=== PATIENT | female | born 1995 ===

== ENCOUNTER 2023-08-06 16:07 | Inpatient (IN) | payer OTHER ==
[2023-08-06 16:39] LABS: APPEARANCE,URINE CLEAR; BILIRUBIN,URINE NEGATIVE (NEGATIVE); COLOR,URINE YELLOW; GLUCOSE,URINE NEGATIVE (NEGATIVE); KETONES,URINE NEGATIVE (NEGATIVE); LEUKOCYTE ESTERASE,URINE NEGATIVE (NEGATIVE); NITRITE,URINE NEGATIVE (NEGATIVE); OCCULT BLOOD,URINE NEGATIVE (NEGATIVE); PH,URINE 6.5 (5.0-8.0); PROTEIN,URINE NEGATIVE (NEGATIVE); UROBILINOGEN,URINE 0.2 EU/dL (<2.0)
[2023-08-06 17:24] LABS: HEMATOCRIT 34.5 % (37.0-47.0); HEMOGLOBIN 12.5 g/dL (12.0-16.0); MEAN CORPUSCULAR HEMOGLOBIN 32.3 pg (28.0-32.0); MEAN CORPUSCULAR HGB CONC 36.2 g/dL (32.0-36.0); MEAN CORPUSCULAR VOLUME 89.1 fL (83.0-99.0); MEAN PLATELET VOLUME 10.4 fL (9.4-12.3); PLATELET COUNT,PLT 176 K/uL (150-400); RED BLOOD CELL COUNT 3.87 M/uL (4.10-5.30)
[2023-08-06] MEDS ORDERED: Tranexamic Acid IN NACL,ISO-OS 1,000 MG in Premix Bag 1 BAG IV PRN ×2 (17:42)
[2023-08-06] MEDS ORDERED: Methylergonovine 0.2 MG/1 ML Amp IM PRN (17:42)
[2023-08-06] MEDS ORDERED: Misoprostol 200 MCG Tab PO PRN (17:42)
[2023-08-06] MEDS ORDERED: Lidocaine 1% 50 ML MDV INJECT PRN (17:42)
[2023-08-06] MEDS ORDERED: Nalbuphine 10 MG/0.5 ML Syringe IVPUSH PRN (17:42)
[2023-08-06] MEDS ORDERED: Carboprost Tromethamine 250 MCG/1 mL Vial IM PRN (17:42)
[2023-08-06] MEDS ORDERED: Sodium Chloride 0.9% 10 ML Syringe FLUSH PRN (17:42)
[2023-08-06] MEDS ORDERED: Terbutaline 1 MG/ML SDV SUBCUT PRN (17:42)
[2023-08-06] MEDS ORDERED: Water For Irrigation,Sterile 1,000 ML Container IRR PRN (17:42)
[2023-08-06] MEDS ORDERED: Sodium Chloride 0.9% 20 ML SDV IV PRN (17:42)
[2023-08-06] MEDS ORDERED: Sodium Chloride 0.9% 2.5 ML Syringe FLUSH PRN (17:42)
[2023-08-06] MEDS ORDERED: Oxytocin/0.9 % Sodium Chloride 30 UNIT/500 ML BAG IV SCH ×2 (17:45)
[2023-08-06] MEDS ORDERED: Labetalol 100 MG Tab PO ONE (17:57)
[2023-08-06 17:59] LABS: A/G RATIO 0.7 (0.9-1.6); ALBUMIN 2.8 g/dL (3.4-5.0); BILIRUBIN TOTAL 0.2 mg/dL (0.2-1.0); CREATININE 0.8 mg/dL (0.6-1.0); EST CRCL DRUG DOSING (CG) 108.44 mL/min; POTASSIUM,K 3.4 mmol/L (3.5-5.1); PROTEIN TOTAL,TP 6.6 g/dL (6.4-8.2); URIC ACID 4.5 mg/dL (2.6-7.2)
[2023-08-06] MEDS ORDERED: Ampicillin 2 GM in Sodium Chloride 0.9% 100 ML IV ONE (18:00)
[2023-08-06] MEDS ORDERED: Labetalol 100 MG/20 ML MDV IVPUSH PRN (18:06)
[2023-08-06] MEDS: Lactated Ringers 1,000 ML IV SCH (18:43)
[2023-08-06] MEDS: Misoprostol 25 MCG (1/4 of 100 MCG) Tab VAG PRN ×2 (19:17→23:24)
[2023-08-06] MEDS ORDERED: Phenylephrine HCl 0.5 MG/5 ML AMP IVPUSH PRN (20:08)
[2023-08-06] MEDS ORDERED: ePHEDrine 50 MG/ML SDV IVPUSH PRN ×2 (20:08)
[2023-08-06] MEDS ORDERED: Ropivacaine HCl/PF 400 MG in Premix Bag 1 BAG EPIDUR SCH (20:15)
[2023-08-06] MEDS: Ampicillin 1 GM in Sodium Chloride 0.9% 50 ML IV SCH (21:57)
[2023-08-07] MEDS: Ampicillin 1 GM in Sodium Chloride 0.9% 50 ML IV SCH ×6 (02:00→22:04)
[2023-08-07] MEDS: Misoprostol 25 MCG (1/4 of 100 MCG) Tab VAG PRN ×2 (03:25→07:34)
[2023-08-07] MEDS: Lactated Ringers 1,000 ML IV SCH ×3 (03:34→16:02)
[2023-08-07] MEDS ORDERED: Labetalol 100 MG Tab PO ONE (07:26)
[2023-08-07] MEDS ORDERED: dexmedeTOMIDine HCl 200 MCG/2 ML SDV ONE (15:26)
[2023-08-07] MEDS ORDERED: Bupivacaine 0.25% 10 ML SDV ONE (15:26)
[2023-08-07] MEDS: Ondansetron 4 MG/2 ML SDV IVPUSH PRN ×2 (16:04→22:05)
[2023-08-07] MEDS ORDERED: Famotidine 20 MG/2 ML SDV IVPUSH ONE (18:31)
[2023-08-08] MEDS ORDERED: Tranexamic Acid IN NACL,ISO-OS 1,000 MG in Premix Bag 1 BAG IV PRN ×2 (00:12)
[2023-08-08] MEDS ORDERED: Misoprostol 200 MCG Tab PO PRN (00:12)
[2023-08-08] MEDS ORDERED: Benzocaine/Menthol 20%-0.5% Spray 78 GM Cannister TOP PRN (00:12)
[2023-08-08] MEDS ORDERED: Lanolin 100% Cream 7 GM Tube TOP PRN (00:12)
[2023-08-08] MEDS: Witch Hazel Medicated Pads 40/Jar TOP PRN ×2 (00:32→14:08)
[2023-08-08 00:54] LABS: PH,UMBILICAL ARTERIAL 7.276 (7.18-7.38); PH,UMBILICAL VENOUS 7.468 (7.25-7.45)
[2023-08-08] MEDS ORDERED: Terbutaline 1 MG/ML SDV ONE (05:34)
[2023-08-08] MEDS: Docusate Sodium 100 MG Cap PO PRN ×2 (08:49→20:26)
[2023-08-08] MEDS: Acetaminophen 500 MG Tab PO PRN ×3 (08:49→20:26)
[2023-08-08] MEDS: Ibuprofen 800 MG Tab PO PRN ×2 (11:22→18:15)
[2023-08-09] MEDS: Ibuprofen 800 MG Tab PO PRN (04:20)
[2023-08-09 06:13] LABS: HEMATOCRIT 31.9 % (37.0-47.0); HEMOGLOBIN 11.1 g/dL (12.0-16.0)
[2023-08-09] MEDS: Acetaminophen 500 MG Tab PO PRN (08:35)
== END 2023-08-09 11:30 | disposition home or self-care (01) | DRG 806 ==
LOC: MW.OBCHECK 16:07 → MW.OB 16:08 → MW.OBCHECK 17:44 → MW.OB 17:44 → OBSVTOIN 08-07 23:44 → MW.OB 08-08 04:00
PROVIDERS: ADMIT Obstetrics & Gynecology; ATTEND Obstetrics & Gynecology
PROC: 10E0XZZ Delivery of Products of Conception, External Approach (ICD-10-PCS; principal; 2023-08-08)
PROC: 0KQM0ZZ Repair Perineum Muscle, Open Approach (ICD-10-PCS; 2023-08-08)
PROC: 3E033VJ Introduction of Other Hormone into Peripheral Vein, Percutaneous Approach (ICD-10-PCS; 2023-08-08)
PROC: 3E0R3BZ Introduction of Anesthetic Agent into Spinal Canal, Percutaneous Approach (ICD-10-PCS; 2023-08-08)
PROC: 00HU33Z Insertion of Infusion Device into Spinal Canal, Percutaneous Approach (ICD-10-PCS; 2023-08-08)
PROC: 3E0P7VZ Introduction of Hormone into Female Reproductive, Via Natural or Artificial Opening (ICD-10-PCS; 2023-08-08)
DX: O13.4 Gestational [pregnancy-induced] hypertension without significant proteinuria, complicating childbirth (principal); O99.354 Diseases of the nervous system complicating childbirth; Z37.0 Single live birth; G43.909 Migraine, unspecified, not intractable, without status migrainosus; O99.344 Other mental disorders complicating childbirth; F41.9 Anxiety disorder, unspecified; F32.A Depression, unspecified; O99.824 Streptococcus B carrier state complicating childbirth; O70.1 Second degree perineal laceration during delivery; Z3A.38 38 weeks gestation of pregnancy
CPT/HCPCS: 36415; 51702; 59200; 59409; 80053; 81003; 82803; 84550; 85014; 85018; 85027; 86592; 86850; 86900; 86901; A9270-GY; J0290; J2300; J2405; J2590; J2795; J3105; J3490; J7120